=== PATIENT | female | born 1985 | race Two or more races ===

== ENCOUNTER 2017-12-23 09:56 | Emergency (ER) | payer SELFPAY ==
[~2017-12-23] VITALS: Ht 160 cm; Wt 120.2 kg
--- NOTE | 2017-12-23 09:56 | NUR ---
[id number] FROM HOME, ROOMMATE CALLED 911 PT IS DROWSY AND FELL IN THE KITCHEN, POSSIBLY HITTNG HER HEAD. PT ADMITS SHE TAKES HER USUAL DOSE OF XANAX X 2 TABS (0.5MG) AND 1 TAB OF TRAZODONE-UNKNOWN DOSE. PT DENIES SI/HI/ NAD VSS RR EVEN AND UNLABORED. SKIN IS WARM AND NON DIAPHORETIC. WILL CONT TO MONITOR
--- NOTE | 2017-12-23 10:12 | NUR ---
PT REFUSED CT SCAN OF THE HEAD. DR WISE NOTIFIED.
--- NOTE | 2017-12-23 13:11 | NUR ---
pt still unable to walk by her self. Dr Banegas notified.
--- NOTE | 2017-12-23 15:13 | NUR ---
Patient is resting comfortably in bed with eyes closed. Easily aroused. VSS
--- NOTE | 2017-12-23 17:28 | NUR ---
PT IS NOW AWAKE. ALERT X 3. AMBULATORY WITH A STEADY GAIT W/O ASSISTANCE TO THE RESTROOM. PT IS READY TO GO HOME. PT'S FATHER IS TAKING HER HOME.
--- NOTE | 2017-12-23 17:32 | NUR ---
IV removed. Catheter intact and site benign. Pressure and 4x4 applied to site. No bleeding noted.
[2017-12-23 17:34] VITALS: BP 114/62
--- NOTE | 2017-12-23 17:34 | NUR ---
Patient discharged to home in stable condition. Written and verbal after care instructions given. Patient and father verbalized understanding of instruction.
== END 2017-12-23 17:35 | disposition home or self-care (01) ==
LOC: ER 09:57
DX: S00.212A Abrasion of left eyelid and periocular area, initial encounter (principal); T42.4X1A Poisoning by benzodiazepines, accidental (unintentional), initial encounter; F41.9 Anxiety disorder, unspecified; W01.0XXA Fall on same level from slipping, tripping and stumbling without subsequent striking against object, initial encounter; Y93.89 Activity, other specified; Y92.090 Kitchen in other non-institutional residence as the place of occurrence of the external cause; Y99.8 Other external cause status
CPT/HCPCS: A4606; Z7610